=== PATIENT | female | born 1950 | race Caucasian/White ===

== ENCOUNTER 2019-12-24 12:38 | Inpatient (IN) ==
[2019-12-24] MEDS ORDERED: 0.9 % Sodium Chloride 1,000 ML IVC ONE (12:52)
[2019-12-24] MEDS ORDERED: levoFLOXacin 750 MG/150 ML 750 MG/150 ML BAG IVPB ONE (12:57)
[2019-12-24] MEDS ORDERED: Vancomycin 1,250 MG/262.5 ML IV.SOLN IVPB ONE (12:57)
[2019-12-24] MEDS ORDERED: Cefepime HCl 1,000 MG in Water for inj. (sterile) 10 ML IVP ONE (12:58)
[2019-12-24] MEDS ORDERED: Isovue-370 500 ML BOTTLE IVP ONE ×2 (13:06→14:36)
[2019-12-24 13:09] LABS: Basophils # 0.1 K/mcL (0.0-0.2); Basophils % 0.3 %; Eosinophils # 0.2 K/mcL (0.0-0.6); Eosinophils % 0.9 %; Hematocrit 38.3 % (35.3-44.9); Hemoglobin 11.8 g/dL (11.5-15.4); Immature Granulocytes % 0.7 % (0-4); Lymphocytes # 0.6 K/mcL (0.6-4.6); Lymphocytes % 3.1 %; Mean Corpuscular HGB Conc 30.8 g/dL (31.6-35.5); Mean Corpuscular Hemoglobin 27.4 pg (28.0-33.3); Mean Corpuscular Volume 89.1 fL (83.0-100.0); Mean Platelet Volume 10.3 fL (9.4-12.4); Monocytes % 5.3 %; Neutrophils # 17.6 K/mcL (1.6-8.9); Platelet Count 311 K/mcL (140-400); Segmented Neutrophils % 89.7 %; White Blood Count 19.6 K/mcL (4.3-11.1)
[2019-12-24 13:12] LABS: VBG HCO3 29 mEq/L (21-27); VBG PCO2 52 mmHg (41-51); VBG PH 7.36 pH Units (7.32-7.42); VBG PO2 46 mmHg (25-50)
[2019-12-24 13:29] LABS: Activated Partial Thrombo Time 29.6 Seconds (26.0-36.0)
[2019-12-24 13:30] LABS: INR 1.2; Prothrombin Time 13.6 Seconds (9.4-12.1)
[2019-12-24] MEDS ORDERED: 0.9 % Sodium Chloride 1,000 ML IV ONE (13:42)
[2019-12-24 13:46] LABS: Bacteria,Urine Few per hpf (None-Few); Bilirubin,Urine Negative (Negative); Blood,Urine Small (Negative); Calcium Oxalate Crystals,Urine Present; Clarity,Urine Turbid (Clear); Color,Urine Yellow (Yellow); Glucose,Urine (UA) Normal (Normal); Hyaline Casts,Urine Few per lpf (None Seen); Ketones,Urine Negative (Negative); Leukocyte Esterase,Urine Negative (Negative); Mucus,Urine Few per lpf (None-Few); Nitrite,Urine Negative (Negative); PH,Urine 5.5 pH Units (5.0-8.0); Protein,Urine 30 mg/dL (Neg-Trace); Squamous Epithelial Cell,Urine Moderate per hpf (None-Few); Urobilinogen,Urine Normal (Normal)
[2019-12-24 13:54] LABS: Alanine Aminotransferase 5 Units/L (7-52); Albumin 3.4 g/dL (3.5-5.7); Albumin/Globulin Ratio 0.9 (1.1-2.2); Alkaline Phosphatase 101 Units/L (34-104); Aspartate Amino Transferase 15 Units/L (13-39); BUN/Creatinine Ratio 12 (6-26); Bilirubin,Direct 0.1 mg/dL (0.0-0.2); Bilirubin,Indirect 0.4 mg/dL (0.0-1.0); Bilirubin,Total 0.5 mg/dL (0.3-1.0); Blood Urea Nitrogen 9 mg/dL (8-23); Calcium 8.7 mg/dL (8.6-10.3); Carbon Dioxide 29 mEq/L (23-29); Chloride 93 mEq/L (98-107); Globulin 3.9 g/dL (2.4-3.5); Glucose 140 mg/dL (70-105); Magnesium 1.6 mg/dL (1.6-2.6); Osmolality,Calculated 273 (280-300); Phosphorous 2.7 mg/dL (2.7-4.5); Potassium 3.8 mEq/L (3.5-5.1); Sodium 131 mEq/L (136-145); Total Protein 7.3 g/dL (6.4-8.9); Troponin I 0.08 ng/mL (< 0.04); eGFR For African Americans > 60 (> 60); eGFR For Non-African Americans > 60 (> 60)
[2019-12-24] MEDS ORDERED: 0.9 % Sodium Chloride 1,000 ML ONE (16:15)
[2019-12-24] MEDS ORDERED: Perflutren Lipid Microsphere 1.3 ML in 0.9 % Sodium Chloride 8.7 ML IVP ONE ×2 (17:41→17:45)
[2019-12-24] MEDS ORDERED: Naloxone 0.4 MG/ML INJ IVP PRN (17:41)
[2019-12-24] MEDS ORDERED: Acetaminophen 325 MG TABLET PO PRN (17:41)
[2019-12-24] MEDS ORDERED: Albuterol 2.5 MG/3 ML NEBULIZER IH PRN (17:47)
[2019-12-24] MEDS ORDERED: Cefepime HCl 1,000 MG in Water for inj. (sterile) 10 ML IVP SCH (18:00)
[2019-12-24] MEDS ORDERED: *HR* Heparin 5,000 UNIT/ML VIAL IVP PRN ×2 (18:35)
[2019-12-24] MEDS ORDERED: *HR* Heparin 5,000 UNIT/ML VIAL IVP ONE (18:35)
[2019-12-24] MEDS ORDERED: Heparin 25,000 UNIT/250 ML D5W 25,000 UNIT/250 ML IV.SOLN IVC SCH (18:45)
[2019-12-24 19:25] LABS: Adenovirus Not Detected (Not Detect); Bordetella Pertussis Not Detected (Not Detect); Chlamydophila pneumoniae Not Detected (Not Detect); Coronavirus 229E Not Detected (Not Detect); Coronavirus HKU1 Not Detected (Not Detect); Coronavirus NL63 Not Detected (Not Detect); Coronavirus OC43 Not Detected (Not Detect); Human Metapneumovirus Not Detected (Not Detect); Human Rhinovirus/Enterovirus Not Detected (Not Detect); Influenza A Subtype 2009 H1 Not Detected (Not Detect); Influenza B Not Detected (Not Detect); Mycoplasma pneumoniae Not Detected (Not Detect); Parainfluenza Virus 1 Not Detected (Not Detect); Parainfluenza Virus 2 Not Detected (Not Detect); Parainfluenza Virus 3 Not Detected (Not Detect); Parainfluenza Virus 4 Not Detected (Not Detect); Respiratory Syncytial Virus Not Detected (Not Detect)
[2019-12-24] MEDS: Cefepime HCl 1,000 MG in Water for inj. (sterile) 10 ML IVP SCH (20:05)
[2019-12-24] MEDS ORDERED: *HR* Heparin 5,000 UNIT/ML VIAL SQ SCH (22:00)
[2019-12-24] MEDS: Ipratropium/Albuterol Neb 3 ML IH SCH (22:48)
[2019-12-24] MEDS: *HR* OxyCODONE Immed Rel 5 MG TABLET PO PRN (23:15)
[2019-12-24] MEDS: methylPREDNISolone 125 MG/2 ML VIAL IVP SCH (23:52)
[2019-12-25 02:37] LABS: Basophils % 0.3 %; Eosinophils # 0.1 K/mcL (0.0-0.6); Eosinophils % 1.6 %; Hematocrit 32.3 % (35.3-44.9); Hemoglobin 9.8 g/dL (11.5-15.4); Immature Granulocytes % 0.4 % (0-4); Lymphocytes # 0.6 K/mcL (0.6-4.6); Lymphocytes % 8.4 %; Mean Corpuscular HGB Conc 30.3 g/dL (31.6-35.5); Mean Corpuscular Hemoglobin 27.1 pg (28.0-33.3); Mean Corpuscular Volume 89.2 fL (83.0-100.0); Monocytes # 0.2 K/mcL (0.0-1.3); Monocytes % 2.8 %; Neutrophils # 5.9 K/mcL (1.6-8.9); Platelet Count 170 K/mcL (140-400); Red Blood Count 3.62 M/mcL (3.82-4.97); Segmented Neutrophils % 86.5 %; White Blood Count 6.8 K/mcL (4.3-11.1)
[2019-12-25 02:58] LABS: Albumin 2.7 g/dL (3.5-5.7); Albumin/Globulin Ratio 0.8 (1.1-2.2); Bilirubin,Direct 0.2 mg/dL (0.0-0.2); Bilirubin,Indirect 0.4 mg/dL (0.0-1.0); Bilirubin,Total 0.6 mg/dL (0.3-1.0); Globulin 3.2 g/dL (2.4-3.5); Magnesium 1.7 mg/dL (1.6-2.6); Phosphorous 2.4 mg/dL (2.7-4.5); Total Protein 5.9 g/dL (6.4-8.9)
[2019-12-25 03:01] LABS: BUN/Creatinine Ratio 17 (6-26); Blood Urea Nitrogen 9 mg/dL (8-23); Calcium 7.7 mg/dL (8.6-10.3); Carbon Dioxide 26 mEq/L (23-29); Chloride 106 mEq/L (98-107); Glucose 94 mg/dL (70-105); Osmolality,Calculated 282 (280-300); Potassium 4.4 mEq/L (3.5-5.1); Sodium 137 mEq/L (136-145); eGFR For African Americans > 60 (> 60); eGFR For Non-African Americans > 60 (> 60)
[2019-12-25] MEDS: Ipratropium/Albuterol Neb 3 ML IH SCH ×4 (04:37→22:50)
[2019-12-25] MEDS: Cefepime HCl 1,000 MG in Water for inj. (sterile) 10 ML IVP SCH (07:59)
[2019-12-25] MEDS: methylPREDNISolone 125 MG/2 ML VIAL IVP SCH ×2 (07:59→15:58)
[2019-12-25] MEDS: *HR* OxyCODONE Immed Rel 5 MG TABLET PO PRN ×2 (07:59→18:19)
[2019-12-25] MEDS ORDERED: levoFLOXacin 750 MG/150 ML 750 MG/150 ML BAG IVPB SCH (09:00)
[2019-12-25] MEDS ORDERED: Aminoglycoside Consult 1 EACH MC ONE (12:09)
[2019-12-25] MEDS ORDERED: *HR* OxyCODONE Immed Rel 5 MG TABLET PO PRN (12:58)
[2019-12-25] MEDS ORDERED: Albuterol 2.5 MG/3 ML NEBULIZER IH PRN (14:41)
[2019-12-25] MEDS ORDERED: *HR* Heparin 5,000 UNIT/ML VIAL IVP PRN ×2 (14:41)
[2019-12-25] MEDS ORDERED: Acetaminophen 325 MG TABLET PO PRN (14:41)
[2019-12-25] MEDS ORDERED: Heparin 25,000 UNIT/250 ML D5W 25,000 UNIT/250 ML IV.SOLN IVC SCH (14:41)
[2019-12-25] MEDS ORDERED: Naloxone 0.4 MG/ML INJ IVP PRN (14:41)
[2019-12-25] MEDS: Cefepime HCl 2,000 MG in Water for inj. (sterile) 20 ML IVP SCH ×2 (15:47→23:18)
[2019-12-25] MEDS ORDERED: methylPREDNISolone 125 MG/2 ML VIAL IVP SCH (16:00)
[2019-12-25] MEDS ORDERED: Cefepime HCl 2,000 MG in Water for inj. (sterile) 20 ML IVP SCH (16:00)
[2019-12-25 16:01] LABS: VBG Ionized Calcium 1.13 mmol/L (1.15-1.35)
[2019-12-25] MEDS: Doxycycline 100 MG CAPSULE PO SCH (20:10)
[2019-12-25] MEDS: NINTEDANIB ESYLATE 150 MG PO SCH (20:15)
[2019-12-26] MEDS: *HR* OxyCODONE Immed Rel 5 MG TABLET PO PRN ×3 (00:51→14:48)
[2019-12-26] MEDS ORDERED: Melatonin 3 MG TABLET PO PRN (01:09)
[2019-12-26] MEDS: Ipratropium/Albuterol Neb 3 ML IH SCH ×4 (03:57→22:10)
[2019-12-26 06:29] LABS: Basophils % 0.1 %; Hematocrit 30.5 % (35.3-44.9); Hemoglobin 9.6 g/dL (11.5-15.4); Immature Granulocytes % 0.8 % (0-4); Lymphocytes # 0.4 K/mcL (0.6-4.6); Lymphocytes % 4.7 %; Mean Corpuscular HGB Conc 31.5 g/dL (31.6-35.5); Mean Corpuscular Hemoglobin 28.2 pg (28.0-33.3); Mean Corpuscular Volume 89.7 fL (83.0-100.0); Mean Platelet Volume 10.3 fL (9.4-12.4); Monocytes # 0.3 K/mcL (0.0-1.3); Neutrophils # 7.7 K/mcL (1.6-8.9); Platelet Count 186 K/mcL (140-400); Red Cell Distribution Width 15.1 % (11.5-14.5); Segmented Neutrophils % 90.4 %; White Blood Count 8.6 K/mcL (4.3-11.1)
[2019-12-26] MEDS: methylPREDNISolone 125 MG/2 ML VIAL IVP SCH (06:30)
[2019-12-26 06:55] LABS: Alanine Aminotransferase 4 Units/L (7-52); Albumin 2.9 g/dL (3.5-5.7); Albumin/Globulin Ratio 0.9 (1.1-2.2); Alkaline Phosphatase 76 Units/L (34-104); Aspartate Amino Transferase 12 Units/L (13-39); BUN/Creatinine Ratio 17 (6-26); Bilirubin,Total 0.4 mg/dL (0.3-1.0); Blood Urea Nitrogen 11 mg/dL (8-23); Calcium 8.8 mg/dL (8.6-10.3); Carbon Dioxide 30 mEq/L (23-29); Chloride 102 mEq/L (98-107); Globulin 3.4 g/dL (2.4-3.5); Glucose 146 mg/dL (70-105); Magnesium 1.8 mg/dL (1.6-2.6); Osmolality,Calculated 286 (280-300); Phosphorous 2.9 mg/dL (2.7-4.5); Sodium 137 mEq/L (136-145); Total Protein 6.3 g/dL (6.4-8.9); eGFR For African Americans > 60 (> 60); eGFR For Non-African Americans > 60 (> 60)
[2019-12-26] MEDS: Doxycycline 100 MG CAPSULE PO SCH ×2 (07:56→21:20)
[2019-12-26] MEDS: Cefepime HCl 2,000 MG in Water for inj. (sterile) 20 ML IVP SCH ×2 (07:56→21:21)
[2019-12-26] MEDS: NINTEDANIB ESYLATE 150 MG PO SCH ×3 (07:57→21:21)
[2019-12-27] MEDS: *HR* OxyCODONE Immed Rel 15 MG TABLET PO PRN ×3 (01:42→17:45)
[2019-12-27] MEDS: Ipratropium/Albuterol Neb 3 ML IH SCH ×4 (04:16→21:19)
[2019-12-27] MEDS ORDERED: Isovue-370 500 ML BOTTLE IVP ONE (05:03)
[2019-12-27 06:04] LABS: VBG HCO3 31 mEq/L (21-27); VBG PCO2 57 mmHg (41-51); VBG PH 7.35 pH Units (7.32-7.42); VBG PO2 34 mmHg (25-50)
[2019-12-27 06:08] LABS: Hematocrit 34.2 % (35.3-44.9); Hemoglobin 10.2 g/dL (11.5-15.4); Mean Corpuscular HGB Conc 29.8 g/dL (31.6-35.5); Mean Corpuscular Hemoglobin 26.8 pg (28.0-33.3); Mean Platelet Volume 10.1 fL (9.4-12.4); Platelet Count 206 K/mcL (140-400); Red Cell Distribution Width 15.5 % (11.5-14.5); White Blood Count 12.1 K/mcL (4.3-11.1)
[2019-12-27 06:23] LABS: BUN/Creatinine Ratio 18 (6-26); Blood Urea Nitrogen 12 mg/dL (8-23); Calcium 8.9 mg/dL (8.6-10.3); Carbon Dioxide 33 mEq/L (23-29); Chloride 101 mEq/L (98-107); Glucose 104 mg/dL (70-105); Osmolality,Calculated 288 (280-300); Potassium 3.3 mEq/L (3.5-5.1); Sodium 139 mEq/L (136-145); eGFR For African Americans > 60 (> 60); eGFR For Non-African Americans > 60 (> 60)
[2019-12-27] MEDS: *HR* Heparin 5,000 UNIT/ML VIAL SQ SCH ×3 (07:55→21:38)
[2019-12-27] MEDS: Cefepime HCl 2,000 MG in Water for inj. (sterile) 20 ML IVP SCH ×2 (07:56→21:38)
[2019-12-27] MEDS: Doxycycline 100 MG CAPSULE PO SCH ×2 (07:56→21:37)
[2019-12-27] MEDS: NINTEDANIB ESYLATE 150 MG PO SCH ×2 (07:57→21:40)
[2019-12-27] MEDS ORDERED: MethylPREDNISolone 40 MG/ML VIAL IVP ONE (08:34)
[2019-12-27] MEDS: rOPINIRole 1 MG TABLET PO SCH ×2 (08:42→21:37)
[2019-12-27] MEDS: Furosemide 40 MG/4 ML VIAL IVP SCH (08:42)
[2019-12-27] MEDS ORDERED: predniSONE 20 MG TABLET PO SCH (09:00)
[2019-12-27] MEDS: methylPREDNISolone 125 MG/2 ML VIAL IVP SCH (17:25)
[2019-12-27] MEDS: diazePAM 5 MG TABLET PO SCH (21:37)
[2019-12-28] MEDS: *HR* OxyCODONE Immed Rel 15 MG TABLET PO PRN ×4 (01:36→22:01)
[2019-12-28] MEDS: Ipratropium/Albuterol Neb 3 ML IH SCH ×4 (03:27→21:47)
[2019-12-28] MEDS: *HR* Heparin 5,000 UNIT/ML VIAL SQ SCH ×3 (05:58→20:48)
[2019-12-28] MEDS: methylPREDNISolone 125 MG/2 ML VIAL IVP SCH ×2 (05:58→17:57)
[2019-12-28] MEDS ORDERED: Furosemide 20 MG/2 ML VIAL IVP ONE (07:29)
[2019-12-28] MEDS: rOPINIRole 1 MG TABLET PO SCH ×2 (08:57→20:48)
[2019-12-28] MEDS: Furosemide 40 MG/4 ML VIAL IVP SCH (08:57)
[2019-12-28] MEDS: Doxycycline 100 MG CAPSULE PO SCH ×2 (08:58→20:47)
[2019-12-28] MEDS: Cefepime HCl 2,000 MG in Water for inj. (sterile) 20 ML IVP SCH ×2 (08:58→20:47)
[2019-12-28] MEDS: NINTEDANIB ESYLATE 150 MG PO SCH ×2 (08:59→20:50)
[2019-12-28] MEDS ORDERED: Potassium Chloride Elixir 20 MEQ/15 ML UDC PO ONE (09:11)
[2019-12-28] MEDS ORDERED: Sulfamethoxazole/Trimeth DS 1 EACH TABLET PO SCH (12:00)
[2019-12-28] MEDS: diazePAM 5 MG TABLET PO SCH (20:48)
[2019-12-29 02:16] VITALS: BP 133/74
== END 2019-12-29 02:53 | disposition short-term general hospital (02) | DRG 871 ==
LOC: EMEROOARM 12:38 → SUATTDRO 16:15 → ICNU 16:15 → 3ANU 12-25 16:40 → ICNU 12-27 10:51
PROVIDERS: ADMIT Pediatrics; ATTEND Internal Medicine